=== PATIENT | male | born 1940 | race Caucasian/White ===

== ENCOUNTER 2024-09-16 19:32 | Inpatient (IN) | payer MEDICARE ==
[2024-09-16 20:29] VITALS: BMI 27.1
[2024-09-16] MEDS ORDERED: Insulin Regular, Human 100 UNIT/ML 10 ML VIAL SC PRN (21:30)
[2024-09-16] MEDS ORDERED: Glucagon 1 MG/ML KIT IM PRN (21:30)
[2024-09-16] MEDS ORDERED: Ondansetron PF 4 MG/2 ML Vial IVP PRN (21:30)
[2024-09-16] MEDS ORDERED: Dextrose 50% Abboject 50 ML SYRINGE SLOW IVP PRN (21:30)
[2024-09-16] MEDS ORDERED: Dextrose 5% in Water 1,000 ML IV PRN (21:30)
[2024-09-16] MEDS: Losartan 25 MG TAB PO SCH (22:25)
[2024-09-16] MEDS: Sodium Chloride 0.9% 1,000 ML IV SCH (22:26)
[2024-09-16] MEDS: Flecainide Acetate 100 MG TAB PO SCH (22:26)
[2024-09-17 05:56] LABS: Anion Gap 11 mmol/L (10-20); BUN (Urea Nitrogen) 18 mg/dL (8.4-25.7); Calc. Creatinine Clearance 100 mL/min (70-130); Calcium 8.6 mg/dL (7.8-10.44); Carbon Dioxide 22 mmol/L (23-31); Chloride 108 mmol/L (98-107); Estimated GFR 88; Glucose 88 mg/dL (83-110); Potassium 4.4 mmol/L (3.5-5.1); Sodium 137 mmol/L (136-145)
[2024-09-17 06:17] LABS: #Basophils 0.03 10x3/uL (0.0-0.2); %Basophils 0.5 % (0.0-1.0); %Eosinophils 4.3 % (0.0-10.0); %Monocytes 13.7 % (0.0-10.0); %Neutrophils 58.1 % (42.0-75.0); Hematocrit 36.9 % (42.0-52.0); Hemoglobin 12.6 g/dL (14.0-18.0); Mean Corpuscular HGB CONC 34.1 g/dL (32.0-36.0); Mean Corpuscular Hemoglobin 31.9 pg (27.0-31.0); Mean Corpuscular Volume 93.4 fL (78.0-98.0); Mean Platelet Volume 9.1 fL (7.4-10.4); Platelet Count 119 10x3/uL (130-400); RBC Distribution Width 13.3 % (11.5-14.5); Red Blood Cell (RBC) Count 3.95 mill/uL (4.70-6.10)
[2024-09-17] MEDS ORDERED: FLU (Fluad Triv) TS24-25 (65UP)/MF59C/PF 45 MCG/0.5 ML Syringe IM ONE (09:00)
[2024-09-17] MEDS: Flecainide Acetate 100 MG TAB PO SCH (09:03)
[2024-09-17] MEDS: Multivitamin W/ Minerals 1 TAB PO SCH (09:05)
[2024-09-17] MEDS: CO Q-10 CAPSULE 100 MG PO SCH (09:05)
[2024-09-17] MEDS: Magnesium Oxide 400 MG TAB PO SCH (09:06)
[2024-09-17] MEDS: Amlodipine 5 MG TAB PO SCH (09:07)
[2024-09-17] MEDS: Famotidine/PF 20 mg/2ml Vial SLOW IVP SCH (09:07)
[2024-09-17] MEDS: Losartan 25 MG TAB PO SCH (09:07)
[2024-09-17] MEDS ORDERED: CEFAZOLIN 2 GM in Sodium Chloride 0.9% 100 ML IVPB SCH (11:00)
[2024-09-17] MEDS ORDERED: Ondansetron PF 4 MG/2 ML Vial ONE (12:59)
[2024-09-17] MEDS ORDERED: fentaNYL PF 100 MCG/2 ML SYRINGE ONE (12:59)
[2024-09-17] MEDS ORDERED: PROPOFOL 20 ML ONE (12:59)
[2024-09-17] MEDS ORDERED: Lidocaine 1% PF 5 ML VIAL ONE (12:59)
[2024-09-17] MEDS: Ezetimibe 10 MG TAB PO SCH ×2 (13:05→21:13)
[2024-09-17] MEDS: Tamsulosin HCl 0.4 MG CAP PO SCH ×2 (13:05→21:12)
[2024-09-17] MEDS ORDERED: ePHEDrine Sulfate 50 MG/10 ML VIAL ONE (13:06)
[2024-09-17] MEDS ORDERED: PHENYLEPHRINE-NS 100 MCG/ML 10 ML SYRINGE ONE ×2 (13:07→14:04)
[2024-09-17] MEDS ORDERED: CEFAZOLIN 2 GM VIAL ONE (13:08)
[2024-09-17] MEDS ORDERED: Glycopyrrolate 0.2 MG/ML 5 ML SYRINGE ONE (13:34)
[2024-09-17] MEDS ORDERED: Dexamethasone 20 MG/5 ML VIAL ONE (13:42)
[2024-09-17] MEDS: CEFAZOLIN 2 GM in Sodium Chloride 0.9% 100 ML IVPB SCH (21:11)
[2024-09-17] MEDS: Atorvastatin Calcium 10 MG TAB PO SCH (21:13)
[2024-09-18 03:56] LABS: #Basophils Less than 0.03 10x3/uL (0.0-0.2); #Eosinophils Less than 0.03 10x3/uL (0.0-0.7); %Lymphocytes 5.9 % (21.0-51.0); %Monocytes 7.1 % (0.0-10.0); %Neutrophils 86.7 % (42.0-75.0); Hematocrit 36.9 % (42.0-52.0); Hemoglobin 12.8 g/dL (14.0-18.0); Mean Corpuscular HGB CONC 34.7 g/dL (32.0-36.0); Mean Corpuscular Hemoglobin 32.2 pg (27.0-31.0); Mean Corpuscular Volume 92.7 fL (78.0-98.0); Mean Platelet Volume 8.8 fL (7.4-10.4); Platelet Count 122 10x3/uL (130-400); RBC Distribution Width 13.2 % (11.5-14.5); Red Blood Cell (RBC) Count 3.98 mill/uL (4.70-6.10)
[2024-09-18] MEDS: Rivaroxaban 15 MG TAB PO SCH (08:12)
[2024-09-18] MEDS: Acetaminophen 325 MG TAB PO PRN (08:12)
[2024-09-18] MEDS: traMADol HCl 50 MG TAB PO PRN (08:15)
[2024-09-18] MEDS: Clopidogrel Bisulfate 75 MG TAB PO SCH (08:18)
[2024-09-18] MEDS: FLU (Fluad Triv) TS24-25 (65UP)/MF59C/PF 45 MCG/0.5 ML Syringe ONE (09:37)
[2024-09-18] MEDS: Sodium Chloride 0.9% 500 ML IV SCH (15:04)
[2024-09-18] MEDS: Amitriptyline HCl 10 MG TAB PO PRN (22:25)
[2024-09-19 05:35] LABS: #Basophils 0.03 10x3/uL (0.0-0.2); %Basophils 0.3 % (0.0-1.0); %Eosinophils 1.1 % (0.0-10.0); %Lymphocytes 17.6 % (21.0-51.0); %Monocytes 11.8 % (0.0-10.0); %Neutrophils 68.7 % (42.0-75.0); Hematocrit 36.1 % (42.0-52.0); Hemoglobin 12.4 g/dL (14.0-18.0); Mean Corpuscular HGB CONC 34.3 g/dL (32.0-36.0); Mean Corpuscular Hemoglobin 31.9 pg (27.0-31.0); Mean Corpuscular Volume 92.8 fL (78.0-98.0); Mean Platelet Volume 9.3 fL (7.4-10.4); Platelet Count 125 10x3/uL (130-400); RBC Distribution Width 13.5 % (11.5-14.5); Red Blood Cell (RBC) Count 3.89 mill/uL (4.70-6.10)
[2024-09-19 18:33] LABS: Bacteria/HPF None Seen HPF (None Seen); Bilirubin Negative (Negative); Blood, Urine 2+ (Negative); CAUTI Indications for Culture Dysuria,urgency,freq; Clarity Clear (Clear); Glucose, Urine (Dipstick) Normal (Negative); Ketone, Urine Negative (Negative); Leukocyte Negative Leu/uL (Negative); Nitrite Negative (Negative); Protein, Urine (Dipstick) Negative (Neg-Trace); RBC/HPF 21-50 HPF (0-3); Specific Gravity, Urine 1.012 (1.002-1.036); Squamous Epithelial None Seen HPF (0-3); Urobilinogen Normal mg/dL (Less than 2); WBC/HPF 0-3 HPF (0-3)
[2024-09-19 18:36] LABS: Urine Culture Reflex No No
[2024-09-20 04:33] LABS: #Basophils 0.05 10x3/uL (0.0-0.2); %Basophils 0.7 % (0.0-1.0); %Eosinophils 2.2 % (0.0-10.0); %Lymphocytes 26.7 % (21.0-51.0); %Monocytes 11.9 % (0.0-10.0); %Neutrophils 58.2 % (42.0-75.0); Hematocrit 36.7 % (42.0-52.0); Hemoglobin 12.7 g/dL (14.0-18.0); Mean Corpuscular HGB CONC 34.6 g/dL (32.0-36.0); Mean Corpuscular Hemoglobin 32.3 pg (27.0-31.0); Mean Corpuscular Volume 93.4 fL (78.0-98.0); Mean Platelet Volume 9.3 fL (7.4-10.4); Platelet Count 132 10x3/uL (130-400); RBC Distribution Width 13.2 % (11.5-14.5); Red Blood Cell (RBC) Count 3.93 mill/uL (4.70-6.10)
[2024-09-21] MEDS: Sodium Chloride 0.9% 500 ML IV SCH (18:08)
[2024-09-22 04:56] LABS: Hematocrit 35.7 % (42.0-52.0); Hemoglobin 12.2 g/dL (14.0-18.0)
[2024-09-22] MEDS: Sodium Chloride 0.9% 1,000 ML IV SCH (09:13)
[2024-09-23] MEDS: Fludrocortisone Acetate 0.1 MG TAB PO SCH (16:27)
[2024-09-23] MEDS: Senokot S 8.6-50 MG TAB PO SCH (20:32)
[2024-09-24] MEDS: Fludrocortisone Acetate 0.1 MG TAB PO SCH (08:13)
[2024-09-24 16:18] VITALS: BP 136/51; TEMP 97.6
== END 2024-09-24 19:00 | DRG 482 ==
LOC: SURG A 19:32
PROVIDERS: ADMIT Specialist; ATTEND Specialist
PROC: 0QS704Z Reposition Left Upper Femur with Internal Fixation Device, Open Approach (ICD-10-PCS; principal; 2024-09-17)
DX: S72.002A Fracture of unspecified part of neck of left femur, initial encounter for closed fracture (principal); W18.30XA Fall on same level, unspecified, initial encounter; N40.0 Benign prostatic hyperplasia without lower urinary tract symptoms; I25.10 Atherosclerotic heart disease of native coronary artery without angina pectoris; I10 Essential (primary) hypertension; E78.5 Hyperlipidemia, unspecified; Z79.899 Other long term (current) drug therapy; I48.91 Unspecified atrial fibrillation; Z95.0 Presence of cardiac pacemaker; I95.1 Orthostatic hypotension
CPT/HCPCS: 36415; 71045; 80048; 80053; 81001; 85014; 85018; 85025; 85610; 85730; 90653; 93005; 93306; C1713; G0390; J1100; J2405; J2704; J3490; J7030

== ENCOUNTER 2025-09-09 19:03 | Emergency (ER) | payer MEDICARE, OTHER ==
[2025-09-09 20:01] LABS: #Basophils Less than 0.03 10x3/uL (0.0-0.2); #Eosinophils 0.07 10x3/uL (0.0-0.7); #Monocytes 0.71 10x3/uL (0.11-0.59); #Neutrophils 4.43 10x3/uL (1.40-6.50); %Basophils 0.3 % (0.0-1.0); %Eosinophils 1.1 % (0.0-10.0); %Lymphocytes 19.8 % (21.0-51.0); %Monocytes 10.9 % (0.0-10.0); %Neutrophils 67.7 % (42.0-75.0); Hematocrit 40.5 % (42.0-52.0); Hemoglobin 13.4 g/dL (14.0-18.0); Mean Corpuscular Hemoglobin 30.2 pg (27.0-31.0); Mean Corpuscular Volume 91.4 fL (78.0-98.0); Platelet Count 113 10x3/uL (130-400); Red Blood Cell (RBC) Count 4.43 mill/uL (4.70-6.10); White Blood Cell (WBC) Count 6.53 10x3/uL (4.8-10.8)
[2025-09-09 20:10] LABS: Magnesium 2.1 mg/dL (1.6-2.6)
[2025-09-09 20:13] LABS: ALT (SGPT) 18 U/L (Less than 45); AST (SGOT) 22 U/L (11-34); Albumin 3.7 g/dL (3.1-4.5); Alkaline Phosphatase 50 U/L (40-110); Anion Gap 13 mmol/L (10-20); BUN (Urea Nitrogen) 25 mg/dL (8.4-25.7); Bilirubin, Total 0.8 mg/dL (0.3-1.2); Calc. Creatinine Clearance 0 mL/min (70-130); Calcium 8.9 mg/dL (7.8-10.44); Carbon Dioxide 21 mmol/L (23-31); Chloride 106 mmol/L (98-107); Globulin 2.9 g/dL (2.4-3.5); Glucose 99 mg/dL (83-110); Potassium 4.4 mmol/L (3.5-5.1); Sodium 136 mmol/L (136-145)
[2025-09-09] MEDS ORDERED: Furosemide 40 MG (4 mL) VIAL ONE (21:32)
== END 2025-09-09 23:00 | disposition home or self-care (01) ==
LOC: ERS 19:03
DX: E87.70 Fluid overload, unspecified (principal); R00.2 Palpitations; R91.1 Solitary pulmonary nodule; I48.91 Unspecified atrial fibrillation; Z55.6 Problems related to health literacy; Z95.0 Presence of cardiac pacemaker; Z95.5 Presence of coronary angioplasty implant and graft; Z79.899 Other long term (current) drug therapy
CPT/HCPCS: 71045; 80053; 83735; 83880; 84484; 85025; 93005; 96374; 99285; J1940

== ENCOUNTER 2025-09-28 13:58 | Outpatient (CLI) | payer MEDICARE | END 2025-09-28 13:59 | disposition home or self-care (01) | LOC: CT 13:58 | PROVIDERS: ATTEND Internal Medicine Critical Care Medicine | DX: R91.1 Solitary pulmonary nodule (principal); R91.8 Other nonspecific abnormal finding of lung field; J94.8 Other specified pleural conditions; I25.10 Atherosclerotic heart disease of native coronary artery without angina pectoris; S32.049A Unspecified fracture of fourth lumbar vertebra, initial encounter for closed fracture | CPT/HCPCS: 71260 ==